=== PATIENT | female | born 1945 | race African-American/Black ===

== ENCOUNTER → 2018-04-12 | Outpatient (CLI) | payer MEDICARE, OTHER ==
[2015-06-20 16:59] VITALS: BP 157/87
[~2018-04-12] MED LIST: ASPI81TA50 PO; IRON18TA PO; MULT-246 PO; REGADENOSON 0.4 MG/5 ML DISP.SYRIN. IV ONE
--- NOTE | 2018-04-12 12:54 | RAD ---
MR#: [id number] Date of Study: 04/12/2018 Ordering Physician: URBAN RANDHAWA Referring Physician: JEB ROSENTHAL Tech: MANUELITO Evans APPROVED REPORT Test Type: Pharmacological Stress Nurse/Tech: Jennifer Gay R.N./Henrietta David RN Test Indications: SOA with exertion Cardiac History: High cholesterol, Diabetes Medications: See Electronic Medical Record Medical History: See Electronic Medical Record Resting ECG: SR Resting Heart Rate: 71 bpm Resting Blood Pressure: 132/83mmHg Pretest Chest Pain: No chest pain Nurse/Tech Notes S1S2, Lungs CTA Consent: The procedure was explained to the patient in lay terms. Informed consent was witnessed. Arnoldo eout was entered into organgir.am. History and Stress Test performed by Jennifer Gay R.N./Henrietta baldwin RN Pharm. Details Pharmacologic stress testing was performed using 0.4mg per 5ml of regadenoson given intravenously ove r 7-10 seconds. Stress Symptoms Dyspnea POST EXERCISE Reason for Termination: Infusion complete Max HR: 106 bpm Max Blood Pressure: 140/77mmHg Blood Pressure response to exercise: Normal blood pressure response during stress. Chest Pain: No. Arrhythmia: No. ST Change: No. INTERPRETATION Stress EKG Conclusion: Baseline EKG showed sinus rhythm. No ischemic changes at peak stress. No arr hythmias. Imaging Protocol IMAGE PROTOCOL: Rest Tc-99m/stress Tc-99m 1 day Rest: Stress: Viability: Radiopharm.Tc99m PgqfmppocSx46j Sestamibi Dose10.2mCi 32mCi Duration 15min. 13min. Img Date 04/12/2018 04/12/2018 Inj-Img Yohk44zmo. 60min. Rest Admin Site:IV - Right AntecubitalAdministrator:CAROLE Gunderson, ARRT (R)(N) Stress Admin Site: IV - Right AntecubitalAdministrator: CAROLE Gunderson, ARRT (R)(N) STRESS DATA End Diast. Vol.68.0mlLVEDV index BSA37.0ml End Syst. Vol.18.0mlLVESV index BSA10.0ml Myocardial Kvxr376.0gEject. Hfiustgj18.0% Stress Scores Regional WT2.00Summed WT9.00 Regional WM0.00Summed WM2.00 Study quality was good. Left Ventricular size was Normal at Rest and Stress. Lung uptake was . Left Ventricular ejection fraction is 74%. The rest and stress images show normal perfusion, normal contraction and thickening. LV Perf. Quant 17 Seg. SSS4.00 17 Seg. SRS8.00 17 Seg. SDS0.00 Stress Defect Extent (% LAD)0.00Rest Defect Extent (% LAD)6.90Rev. Defect Extent (% LAD)0.00 Stress Defect Extent (% LCX) 16.30Rest Defect Extent (% LCX)26.30Rev. Defect Extent (% LCX)0.00 Stress Defect Extent (% RCA)2.20Rest Defect Extent (% RCA)24.40Rev. Defect Extent (% RCA)0.00 Stress Defect Extent (% TAY)7.80Rest Defect Extent (% TAY)20.20Rev. Defect Extent (% TAY)0.00 Conclusion 1. Regadenoson cardioisotope stress test did not show any evidence of ischemia or infarct. 2. Normal left ventricular systolic function with ejection fraction calculated at 74%. 3. Low risk for cardiac events. Signed by : Urban Randhawa, Electronically Approved : 04/12/2018 12:53:03
== END | disposition home or self-care (01) ==
LOC: NM 09:33
PROVIDERS: ATTEND Internal Medicine Cardiovascular Disease
DX: R06.09 Other forms of dyspnea (principal); E78.00 Pure hypercholesterolemia, unspecified; E11.9 Type 2 diabetes mellitus without complications
CPT/HCPCS: 78452; 93017; 96374; A9500; J2785

== ENCOUNTER → 2018-04-26 | Outpatient (CLI) | payer MEDICARE, OTHER ==
[2015-06-20 16:59] VITALS: BP 157/87
[~2018-04-26] MED LIST changes: -REGADENOSON 0.4 MG/5 ML DISP.SYRIN. IV ONE
--- NOTE | 2018-04-26 18:16 | RAD ---
MR#: [id number] Date of Study: 04/26/2018 Ordering Physician: URBAN RANDHAWA, Referring Physician: URBAN RANDHAWA, Tech: Maximo Rosa MBA, RDMS, RVT, RDCS, RTR APPROVED REPORT Patient Location : OUT-PATIENT Indications Lower Extremity Edema : Bilateral Findings Grayscale images of the saphenofemoral junctions do not reveal any obvious evidence of thrombus. The right great saphenous vein measures 6.2 mm in the left great saphenous vein measures 6.3 mm. The bilateral greater saphenous veins do not show any evidence of reflux. The bilateral lesser saphenous veins do not show any evidence of reflux. Multiple superficial venous varicosities are noted along the mid and lateral aspect of the left thigh extending to the level of the popliteal fossa. Cannot rule out superficial vein thrombosis. Critical Notification Critical Value: No <Conclusion> 1. Negative for reflux in the bilateral greater and lesser saphenous veins. 2. Multiple superficial venous varicosities with likely chronic thrombus noted. Signed by : Sky Yanes, Electronically Approved : 04/26/2018 18:14:23
== END | disposition home or self-care (01) ==
LOC: US 13:26
PROVIDERS: ATTEND Internal Medicine Cardiovascular Disease
DX: I83.893 Varicose veins of bilateral lower extremities with other complications (principal)
CPT/HCPCS: 93970

== ENCOUNTER → 2018-05-11 | Outpatient (CLI) | payer MEDICARE, OTHER ==
[2015-06-20 16:59] VITALS: BP 157/87
--- NOTE | 2018-05-11 16:05 | CARD ---
MR#: [id number] Date of Study: 05/11/2018 Ordering Physician: URBAN GONZALEZ, Referring Physician: URBAN GONZALEZ Tech: Ayse Anne JENNIE APPROVED REPORT EXAM: Two-dimensional and M-mode echocardiogram with Doppler and color Doppler. Other Information Quality : GoodHR: 79bpm Rhythm : NSR INDICATION Dyspnea 2D DIMENSIONS RVDd3.0 (2.9-3.5cm)Left Atrium(2D)3.1 (1.6-4.0cm) IVSd1.3 (0.7-1.1cm)Aortic Root(2D)3.0 (2.0-3.7cm) LVDd3.5 (3.9-5.9cm)LVOT Diameter2.0 (1.8-2.4cm) PWd1.1 (0.7-1.1cm)LVDs2.5 (2.5-4.0cm) FS (%) 28.4 %SV28.8 ml LVEF(%)55.9 (>50%) Aortic Valve AoV Peak Maury.143.5cm/sAoV VTI28.0cm AO Peak GR.8.2mmHgLVOT Peak Maury.84.5cm/s AO Mean GR.4mmHgAVA (VMAX)1.82cm2 YING (VTI)1.80cm2 Mitral Valve MV E Lpdihjbi67.6cm/sMV DECEL CHOY634me MV A Hsfvxxnb62.7cm/sE/A Ratio0.9 MV A Ggnjhrnq83bc Pulmonary Valve PV Peak Srdtnctr767.6cm/s Tricuspid Valve TR P. Xllrryqh425ry/sRAP FUPMZKCR9flLv TR Peak Gr.19gtEgPYNF67rfRt Pulmonary Vein S1 Fngcztck40.1cm/sD2 Rkgwmugj98.4cm/s PVa udlrafsj90cmsx LEFT VENTRICLE The left ventricle is normal size. There is mild concentric left ventricular hypertrophy. The left ve ntricular systolic function is normal. The Ejection Fraction is 55-60%. There is normal LV segmental wall motion. Transmitral Doppler flow pattern is Grade I-abnormal relaxation pattern. RIGHT VENTRICLE The right ventricle is normal size. There is normal right ventricular wall thickness. The right ventr icular systolic function is normal. ATRIA The left atrium size is normal. The right atrium size is normal. The interatrial septum is intact wit h no evidence for an atrial septal defect or patent foramen ovale as noted on 2-D or Doppler imaging. AORTIC VALVE The aortic valve is normal in structure and function. The aortic valve is trileaflet. Doppler and Col or Flow revealed no significant aortic regurgitation. There is no significant aortic valvular stenosi s. MITRAL VALVE The mitral valve is normal in structure and function. There is no evidence of mitral valve prolapse. There is no mitral valve stenosis. Doppler and Color-flow revealed trace mitral regurgitation. TRICUSPID VALVE The tricuspid valve is normal in structure and function. Doppler and Color Flow revealed trace tricus pid regurgitation. The PA pressure was estimated at 26 mmHg. There is no tricuspid valve prolapse or vegetation. There is no tricuspid valve stenosis. PULMONIC VALVE The pulmonary valve is prominent measuring 3.1cm. Doppler and Color Flow revealed no pulmonic valvula r regurgitation. There is no pulmonic valvular stenosis. GREAT VESSELS The aortic root is normal in size. The ascending aorta is normal in size. The IVC is normal in size a nd collapses >50% with inspiration. PERICARDIAL EFFUSION There is no evidence of significant pericardial effusion. Critical Notification Critical Value: No <Conclusion> The left ventricular systolic function is normal. The Ejection Fraction is 55-60%. There is normal LV segmental wall motion. Transmitral Doppler flow pattern is Grade I-abnormal relaxation pattern. Trace mitral regurgitation. Trace tricuspid regurgitation. The PA pressure was estimated at 26 mmHg. There is no evidence of significant pericardial effusion. Signed by : Urban Gonzalez, Electronically Approved : 05/11/2018 16:04:43
== END | disposition home or self-care (01) ==
LOC: ECHO 12:34
PROVIDERS: ATTEND Internal Medicine Cardiovascular Disease
DX: I51.7 Cardiomegaly (principal); R00.8 Other abnormalities of heart beat
CPT/HCPCS: 93306

== ENCOUNTER → 2018-05-22 | Outpatient (CLI) | payer MEDICARE, OTHER ==
[2015-06-20 16:59] VITALS: BP 157/87
--- NOTE | 2018-05-26 16:06 | RAD ---
MR#: [id number] Date of Study: 05/22/2018 Ordering Physician: URBAN RANDHAWA, Referring Physician: URBAN RANDHAWA, Tech: Maximo Rosa MBA, RDMS, RVT, RDCS, RTR APPROVED REPORT Patient Location: OUT-PATIENT Indications Rest Pain:Bilaterally VELOCITY AND DOPPLER WAVEFORM ANALYSIS RIGHT cm/secWaveformSeverity LEFT cm/secWaveform Severity dCFA 128.0TriphasicdCFA 97.0Triphasic Prof Fem Art. 72.0TriphasicProf Fem Art. 55.0Biphasic Fem Art Prox. 124.0TriphasicFem Art Prox. 118.0Triphasic Fem Art Mid. 97.0TriphasicFem Art Mid. 96.0Triphasic Fem Art Dist. 103.0TriphasicFem Art Dist. 95.0Triphasic Pop Art(Fossa) 111.0TriphasicPop Art(AK) 100.0Triphasic DATA COMMUNICATIONS TECHNICIAN Prox. 100.0TriphasicPTA Prox. 96.0Triphasic DATA COMMUNICATIONS TECHNICIAN Dist. 98.0TriphasicPTA Dist. 60.0Triphasic Per Art Mid. 68.0TriphasicPer Art Mid. 106.0Biphasic SARI Prox. 78.0TriphasicATA Prox. 106.0Triphasic DPA 88TriphasicDPA 78Triphasic Findings Wood scale images of the bilateral lower extremity arterial vessels reveals mild intimal plaque. No s ignificant obstructive coronary disease is noted on wood scale images. Spectral waveforms and color Doppler of the bilateral lower summary arterial vessels reveals normal v elocities. Critical Notification Critical Value: No <Conclusion> No significant lower extremity arterial disease. Signed by : Sky Yanes, Electronically Approved : 05/26/2018 16:06:08
== END | disposition home or self-care (01) ==
LOC: US 13:47
PROVIDERS: ATTEND Internal Medicine Cardiovascular Disease
DX: I70.293 Other atherosclerosis of native arteries of extremities, bilateral legs (principal)
CPT/HCPCS: 93925

== ENCOUNTER 2019-04-20 06:47 | Emergency (ER) | payer MEDICARE, OTHER ==
[~2019-04-20] VITALS: Ht 154.9 cm; Wt 80.0 kg
--- NOTE | 2019-04-20 07:04 | EKG ---
[facility] [address] [place] [address] Test Date: 2019-04-20 Test Time: 06:59:40 Pat Name: SOCORRO CARR Department: Room: Gender: F Wheelchair Van Driver: : 1945 Requested By: LEYLA DE LA CRUZ Order Number: [id number] Reading MD: Measurements Intervals Polaris Rate: 65 P: 53 WA: 192 QRS: 0 QRSD: 80 T: 37 QT: 388 QTc: 408 Interpretive Statements SINUS RHYTHM LEFTWARD AXIS BORDERLINE ECG No previous ECG available for comparison
--- NOTE | 2019-04-20 07:09 | PHYS DOC ---
Past Medical History Past Medical History: Anemia, Arthritis, Bronchitis, Diabetes-Type II, High Cholesterol Additional Past Medical Histor: Scoliosis Past Surgical History: Hysterectomy Additional Past Surgical Histo: Rt knee, back surgery Alcohol Use: None Drug Use: None Adult General Chief Complaint Chief Complaint: NAUSEA/VOMITING/DIARRHA HPI HPI Patient is a 73 year old with history of dyslipidemia, diet-controlled diabetes mellitus, anemia, bronchitis, arthritis who presents via EMS with complaint of nausea and vomiting. Patient states she has had cough and nasal congestion with mild shortness of breath without fever and chills for 1 week. Patient states she has had 4 episodes of nonbloody vomiting since 4 AM and one episode of loose stool that was not a real diarrhea patient complaining of epigastric aching and sharp pain with radiation to her back and rated her pain 7 or 8/10. She denies fever and chills, urinary symptoms, sick contacts, history of the same problem. Review of Systems Review of Systems Constitutional: Denies fever or chills [] Eyes: Denies change in visual acuity, redness, or eye pain [] HENT: Reports nasal congestion Respiratory: Reports cough and shortness of breath Cardiovascular: No additional information not addressed in HPI [] GI: Reports abdominal pain, nausea, vomiting, denies bloody stools or diarrhea [] : Denies dysuria or hematuria [] Musculoskeletal: Denies back pain or joint pain [] Integument: Denies rash or skin lesions [] Neurologic: Denies headache, focal weakness or sensory changes [] Endocrine: Denies polyuria or polydipsia [] All other systems were reviewed and found to be within normal limits, except as documented in this note. Current Medications Current Medications Current Medications Medications (Trade) Dose Ordered Sig/Zeyad Start Time Stop Time Status Last Admin Dose Admin Famotidine (Pepcid Vial) 20 mg 1X ONCE 04/20/19 09:15 04/20/19 09:19 DC 04/20/19 09:28 20 MG Fentanyl Citrate (Fentanyl 2ml Vial) 50 mcg 1X ONCE 04/20/19 07:00 04/20/19 07:02 DC 04/20/19 07:28 50 MCG Ondansetron HCl (Zofran) 4 mg 1X ONCE 04/20/19 07:00 04/20/19 07:02 DC 04/20/19 07:28 4 MG Sodium Chloride 1,000 ml @ 1,000 mls/hr Q1H 04/20/19 06:55 04/20/19 07:54 DC 04/20/19 07:27 1,000 MLS/HR Allergies Allergies Allergies Coded Allergies Type Severity Reaction Last Updated Verified No Known Drug Allergies 05/14/13 No Physical Exam Physical Exam Constitutional: Well developed, well nourished, moderate distress, non-toxic appearance. [] HENT: Normocephalic, atraumatic, bilateral external ears normal, oropharynx moist, no oral exudates, nose normal. [] Eyes: PERRLA, EOMI, conjunctiva normal, no discharge. [] Neck: Normal range of motion, no tenderness, supple, no stridor. [] Cardiovascular:Heart rate regular rhythm, no murmur [] Lungs & Thorax: Bilateral breath sounds clear to auscultation [] Abdomen: Bowel sounds normal, soft, right upper quadrant guarding, no tenderness, no masses, no pulsatile masses. [] Skin: Warm, dry, no erythema, no rash. [] Back: No tenderness, no CVA tenderness. [] Extremities: No tenderness, no cyanosis, no clubbing, ROM intact, no edema. [] Neurologic: Alert and oriented X 3, normal motor function, normal sensory function, no focal deficits noted. [] Psychologic: Affect anxious, judgement normal, mood normal. [] Current Patient Data Vital Signs Vital Signs Date Time Temp Pulse Resp B/P (MAP) Pulse Ox O2 Delivery O2 Flow Rate FiO2 04/20/19 09:53 65 16 180/84 (116) 96 Room Air 04/20/19 08:23 2.0 04/20/19 06:47 97.6 97.6 Lab Values Laboratory Tests Test 04/20/19 07:10 04/20/19 09:37 White Blood Count 7.6 x10^3/uL (4.0-11.0) Red Blood Count 5.18 x10^6/uL (3.50-5.40) Hemoglobin 11.7 g/dL (12.0-15.5) L Hematocrit 37.2 % (36.0-47.0) Mean Corpuscular Volume 72 fL (79-100) L Mean Corpuscular Hemoglobin 23 pg (25-35) L Mean Corpuscular Hemoglobin Concent 31 g/dL (31-37) Red Cell Distribution Width 15.6 % (11.5-14.5) H Platelet Count 222 x10^3/uL (140-400) Neutrophils (%) (Auto) 79 % (31-73) H Lymphocytes (%) (Auto) 16 % (24-48) L Monocytes (%) (Auto) 5 % (0-9) Eosinophils (%) (Auto) 0 % (0-3) Basophils (%) (Auto) 1 % (0-3) Neutrophils # (Auto) 6.0 x10^3/uL (1.8-7.7) Lymphocytes # (Auto) 1.2 x10^3/uL (1.0-4.8) Monocytes # (Auto) 0.3 x10^3/uL (0.0-1.1) Eosinophils # (Auto) 0.0 x10^3/uL (0.0-0.7) Basophils # (Auto) 0.0 x10^3/uL (0.0-0.2) Segmented Neutrophils % 79 % (35-66) H Lymphocytes % 18 % (24-48) L Monocytes % 1 % (0-10) Eosinophils % 1 % (0-5) Myelocytes % 1 % (0-0) H Platelet Estimate Adequate (ADEQUATE) Hypochromasia Mod Anisocytosis Present Microcytosis Mod Prothrombin Time 12.6 SEC (11.7-14.0) Prothrombin Time INR 1.0 (0.8-1.1) Sodium Level 141 mmol/L (136-145) Potassium Level 3.8 mmol/L (3.5-5.1) Chloride Level 103 mmol/L (98-107) Carbon Dioxide Level 28 mmol/L (21-32) Anion Gap 10 (6-14) Blood Urea Nitrogen 21 mg/dL (7-20) H Creatinine 0.9 mg/dL (0.6-1.0) Estimated GFR (Cockcroft-Gault) 74.5 BUN/Creatinine Ratio 23 (6-20) H Glucose Level 186 mg/dL (70-99) H Calcium Level 8.9 mg/dL (8.5-10.1) Total Bilirubin 0.3 mg/dL (0.2-1.0) Aspartate Amino Transferase (AST) 19 U/L (15-37) Alanine Aminotransferase (ALT) 31 U/L (14-59) Alkaline Phosphatase 56 U/L (46-116) Creatine Kinase 249 U/L (26-192) H Troponin I Quantitative < 0.017 ng/mL (0.000-0.055) Total Protein 7.2 g/dL (6.4-8.2) Albumin 3.9 g/dL (3.4-5.0) Albumin/Globulin Ratio 1.2 (1.0-1.7) Lipase 114 U/L (73-393) Urine Collection Type Void Urine Color Yellow Urine Clarity Clear Urine pH 7.0 Urine Specific [place] 1.015 Urine Protein Negative mg/dL (NEG-TRACE) Urine Glucose (UA) Negative mg/dL (NEG) Urine Ketones (Stick) Negative mg/dL (NEG) Urine Blood Small (NEG) Urine Nitrite Negative (NEG) Urine Bilirubin Negative (NEG) Urine Urobilinogen Dipstick 0.2 mg/dL (0.2 mg/dL) Urine Leukocyte Esterase Negative (NEG) Urine RBC 20-40 /HPF (0-2) Urine WBC 0 /HPF (0-4) Urine Squamous Epithelial Cells Mod /LPF Urine Bacteria Few /HPF (0-FEW) Laboratory Tests 04/20/19 07:10 Laboratory Tests 04/20/19 07:10 EKG EKG KG interpreted by me. EKG at 0 659 showed normal sinus rhythm at rate of 65, left valdez axis, normal MN and QT intervals, no acute ST and T-wave elevation. Radiology/Procedures Radiology/Procedures [facility] [address] [place] [address] IMAGING REPORT Signed PATIENT: SOCORRO CARR AACCOUNT: [id number] : 1945 LOCATION: ER AGE: 73 SEX: F EXAM STATUS: REG ER ORD. PHYSICIAN: LEYLA DE LA CRUZ MD REASON: cough PROCEDURE: PORTABLE CHEST 1V PORTABLE CHEST 1V INDICATION: Cough. COMPARISON STUDY: 07/24/2012. FINDINGS: Lungs: Low lung volume. No pulmonary mass or consolidation. The tracheobronchial tree and hilar structures are normal. Pleura: No pleural effusion or pneumothorax. Heart and Mediastinum: Cardiomegaly. The great vessels of the thorax are normal. IMPRESSION: Low lung volume. No consolidation. Electronically signed by: Nyla Washington MD (04/20/2019 7:47 AM) [facility] DICTATED and SIGNED BY: NYLA WASHINGTON MD DATE: 04/20/19 0747 [facility] [address] [place] [address] IMAGING REPORT Signed PATIENT: SOCORRO CARR AACCOUNT: [id number] : 1945 LOCATION: ER AGE: 73 SEX: F EXAM STATUS: REG ER ORD. PHYSICIAN: LEYLA DE LA CRUZ MD REASON: nausea and vomiting and right upper quadrant pain PROCEDURE: ABDOMEN LTD ABDOMEN LTD INDICATION: Nausea vomiting, right upper quadrant pain COMPARISON: None. TECHNIQUE: Limited transverse and longitudinal grayscale images of the right upper quadrant with color and pulsed doppler utilized as appropriate. FINDINGS: The liver demonstrates increased echogenicity without focal lesions. The liver measures 19 cm. The portal vein is patent with normal antegrade flow. Gallbladder was not visualized. Negative sonographic Angel's sign. No intrahepatic or extrahepatic biliary dilatation. The common bile duct measures 0.3 cm. Pancreas was poorly visualized. The right kidney has normal echogenicity and measures 10.1 cm. No hydronephrosis, shadowing stones or suspicious masses seen. No ascites or fluid collections. The aorta and IVC are poorly visualized. Multiple fluid-filled but nondilated loops of small bowel. IMPRESSION: 1. Gallbladder was not visualized. Normal caliber common bile duct. 2. Multiple conspicuous fluid-filled but nondilated loops of small bowel are noted. Nonspecific, but consider enteritis. 3. Hepatomegaly and hepatic steatosis. Electronically signed by: Nyla Washington MD (04/20/2019 7:42 AM) [facility] DICTATED and SIGNED BY: NYLA WASHINGTON MD DATE: 04/20/19 0742 Course & Med Decision Making Course & Med Decision Making Pertinent Labs and Imaging studies reviewed. (See chart for details) Evaluation of patient in ER showed 73-year-old female patient brought in by EMS with complaining of nausea and vomiting since this morning. She had epigastric pain that improved with Pepcid. Labs was unremarkable except for mild elevation of urine. Patient has chronic anemia. EKG and cardiac enzyme unremarkable. Patient tolerated oral intake. Plan discharge patient home with diagnose of acute bronchitis and nausea and vomiting. I've spoken with the patient and/or caregivers. I've explained the patient's condition, diagnosis and treatment plan based on information available to me at this time. I've answered the patient's and/or caregivers questions and addressed any concerns. The patient and/or caregivers have a good understanding the patient's diagnosis, condition and treatment plan as can be expected at this point. Vital signs have been stabilized. The patient's condition is stable for discharge from the emergency department. The patient will pursue further outpatient evaluation with her primary care provider or other designated consulting physician as outlined in the discharge instructions. Patient and/or caregivers are agreeable to this plan of care and follow-up instructions have been explained in detail. The patient and/or caregivers have received these instructions in written format and expressed understanding of these discharge instructions. The patient and her caregivers are aware that if any significant change in condition or worsening of symptoms should prompt him to immediately return to this of the closest emergency department. If an emergent department is not readily available I would enco urage him to call 911. aRjesh Disclaimer Rajesh Disclaimer This electronic medical record was generated, in whole or in part, using a voice recognition dictation system. Departure Departure Impression: Primary Impression: Acute gastritis Additional Impressions: Upper respiratory infection Dehydration Disposition: 01 HOME, SELF-CARE Condition: IMPROVED Referrals: DAVON GARCIA MD (PCP) Patient Instructions: Gastritis, Adult, Upper Respiratory Infection, Adult Additional Instructions: Drink plenty of liquids Follow-up with your primary care physician in 3-5 days Return to ER if not getting better Do not eat solid food today Scripts Ondansetron Hcl (ZOFRAN) 4 Mg Tablet 1 TAB PO PRN Q6-8HRS for nausea, #12 TAB Prov: LEYLA DE LA CRUZ MD 04/20/19 Benzonatate (TESSALON PERLE) 100 Mg Capsule 1 CAP PO TID for cough, #21 CAP Prov: LEYLA DE LA CRUZ MD 04/20/19 Sulfamethoxazole/Trimethoprim (BACTRIM DS TABLET) 1 Each Tablet 1 TAB PO BID for infection, #14 TAB Prov: LEYLA DE LA CRUZ MD 04/20/19 Acetaminophen With Codeine (TYLENOL WITH CODEINE #3 TABLET) 1 Each Tablet 1 TAB PO PRN Q6HRS PRN for PAIN, #10 TAB Prov: LEYLA DE LA CURZ MD 04/20/19 Problem Qualifiers Primary Impression: Acute gastritis Gastritis type: other gastritis Gastritis bleeding: without bleeding Qualified Codes: K29.00 - Acute gastritis without bleeding Additional Impressions: Upper respiratory infection URI type: unspecified URI Qualified Codes: J06.9 - Acute upper respiratory infection, unspecified LEYLA DE LA CRUZ MD Apr 20, 2019 07:09
[2019-04-20] MEDS: IV NORMAL SALINE 1000ML BAG 1,000 ML IV SCH (07:27)
[2019-04-20 07:28] LABS: CALCIUM 8.9 mg/dL (8.5-10.1); CREATININE 0.9 mg/dL (0.6-1.0); GFR 74.5; POTASSIUM 3.8 mmol/L (3.5-5.1)
[2019-04-20] MEDS: fentaNYL PF VIAL 100 MCG/2 ML VIAL IV ONE (07:28)
[2019-04-20] MEDS: ONDANSETRON PF 4 MG/2 ML VIAL. IV ONE (07:28)
[2019-04-20 07:36] LABS: ALBUMIN 3.9 g/dL (3.4-5.0); ALBUMIN/GLOBULIN RATIO 1.2 (1.0-1.7); TOTAL BILIRUBIN 0.3 mg/dL (0.2-1.0); TOTAL PROTEIN 7.2 g/dL (6.4-8.2)
[2019-04-20 07:39] LABS: BASO % 1 % (0-3); EOS % 0 % (0-3); HEMATOCRIT 37.2 % (36.0-47.0); HEMOGLOBIN 11.7 g/dL (12.0-15.5); LYMPH # 1.2 x10^3/uL (1.0-4.8); LYMPH % 16 % (24-48); MEAN CORPUSCULAR HEMOGLOBIN 23 pg (25-35); MEAN CORPUSCULAR HGB CONC 31 g/dL (31-37); MEAN CORPUSCULAR VOLUME 72 fL (79-100); MONO # 0.3 x10^3/uL (0.0-1.1); MONO % 5 % (0-9); NEUT % 79 % (31-73); PLATELET COUNT 222 x10^3/uL (140-400); RED BLOOD COUNT 5.18 x10^6/uL (3.50-5.40); RED CELL DISTRIBUTION WIDTH 15.6 % (11.5-14.5); WHITE BLOOD COUNT 7.6 x10^3/uL (4.0-11.0)
--- NOTE | 2019-04-20 07:45 | RAD ---
ABDOMEN LTD INDICATION: Nausea vomiting, right upper quadrant pain COMPARISON: None. TECHNIQUE: Limited transverse and longitudinal grayscale images of the right upper quadrant with color and pulsed doppler utilized as appropriate. FINDINGS: The liver demonstrates increased echogenicity without focal lesions. The liver measures 19 cm. The portal vein is patent with normal antegrade flow. Gallbladder was not visualized. Negative sonographic Angel's sign. No intrahepatic or extrahepatic biliary dilatation. The common bile duct measures 0.3 cm. Pancreas was poorly visualized. The right kidney has normal echogenicity and measures 10.1 cm. No hydronephrosis, shadowing stones or suspicious masses seen. No ascites or fluid collections. The aorta and IVC are poorly visualized. Multiple fluid-filled but nondilated loops of small bowel. IMPRESSION: 1. Gallbladder was not visualized. Normal caliber common bile duct. 2. Multiple conspicuous fluid-filled but nondilated loops of small bowel are noted. Nonspecific, but consider enteritis. 3. Hepatomegaly and hepatic steatosis. Electronically signed by: Jayy Washington MD (04/20/2019 7:42 AM) [facility]
[2019-04-20 07:46] LABS: PROTHROMBIN TIME PATIENT 12.6 SEC (11.7-14.0)
--- NOTE | 2019-04-20 07:49 | RAD ---
PORTABLE CHEST 1V INDICATION: Cough. COMPARISON STUDY: 07/24/2012. FINDINGS: Lungs: Low lung volume. No pulmonary mass or consolidation. The tracheobronchial tree and hilar structures are normal. Pleura: No pleural effusion or pneumothorax. Heart and Mediastinum: Cardiomegaly. The great vessels of the thorax are normal. IMPRESSION: Low lung volume. No consolidation. Electronically signed by: Jayy Washington MD (04/20/2019 7:47 AM) [facility]
[2019-04-20 09:23] LABS: % EOS 1 % (0-5); % LYMPHS 18 % (24-48); % MONOS 1 % (0-10); % MYELOS 1 % (0-0); % SEGS 79 % (35-66)
[2019-04-20 09:24] LABS: ANISOCYTOSIS PRESENT; HYPOCHROMIA MOD; MICROCYTOSIS MOD; PLT ESTIMATE ADEQUATE (ADEQUATE)
[2019-04-20] MEDS: FAMOTIDINE 20 MG/2 ML VIAL IVP ONE (09:28)
[2019-04-20 09:53] VITALS: BP 180/84
[2019-04-20 10:01] LABS: BILIRUBIN,URINE NEGATIVE (NEG); CLARITY,URINE CLEAR; COLOR,URINE YELLOW; NITRITE,URINE NEGATIVE (NEG); PROTEIN,URINE NEGATIVE (NEG-TRACE); UROBILINOGEN,URINE 0.2 mg/dL (0.2 mg/dL)
[2019-04-20] MEDS ORDERED: ACET-704 PO (10:09)
[2019-04-20 10:20] LABS: BACTERIA,URINE FEW /HPF (0-FEW); RBC,URINE 20-40 /HPF (0-2); SQUAMOUS EPITHELIAL CELL,UR MOD /LPF; WBC,URINE 0 /HPF (0-4)
[2019-04-20] MEDS ORDERED: SULF1TAB24 PO (10:24)
[2019-04-20] MEDS ORDERED: BENZ100C PO (10:24)
[2019-04-20] MEDS ORDERED: ONDA4TAB7 PO (10:24)
== END 2019-04-20 10:27 | disposition home or self-care (01) ==
LOC: ER 06:47
DX: K29.00 Acute gastritis without bleeding (principal); J06.9 Acute upper respiratory infection, unspecified; E86.0 Dehydration; M19.90 Unspecified osteoarthritis, unspecified site; E11.9 Type 2 diabetes mellitus without complications; E78.00 Pure hypercholesterolemia, unspecified; M41.9 Scoliosis, unspecified; Z90.710 Acquired absence of both cervix and uterus; Z98.890 Other specified postprocedural states
CPT/HCPCS: 36415; 71045; 76705; 80053; 81001; 82550; 83690; 84484; 85007; 85025; 85610; 93005; 96361; 96374; 96375; 99285; J2405; J3010; J3490; J7030

== ENCOUNTER → 2020-06-05 | Outpatient (CLI) | payer MEDICARE, OTHER ==
[~2020-06-05] MED LIST changes: +ACET-704 PO; +BENZ100C PO; +ONDA4TAB7 PO; +SULF1TAB24 PO
--- NOTE | 2020-06-05 17:26 | CARD ---
MR#: [id number] Date of Study: 06/05/2020 Ordering Physician: URBAN RANDHAWA, Referring Physician: URBAN RANDHAWA Tech: Stephanie Raines [facility] APPROVED REPORT EXAM: Two-dimensional and M-mode echocardiogram with Doppler and color Doppler. Other Information Quality : AverageHR: 78bpm Rhythm : NSR INDICATION Hypertension/HCVD 2D DIMENSIONS RVDd3.0 (2.9-3.5cm)Left Atrium(2D)3.3 (1.6-4.0cm) IVSd1.1 (0.7-1.1cm)Aortic Root(2D)2.9 (2.0-3.7cm) LVDd3.3 (3.9-5.9cm)LVOT Diameter2.2 (1.8-2.4cm) PWd1.3 (0.7-1.1cm)LVDs2.2 (2.5-4.0cm) FS (%) 35.2 %SV29.7 ml LVEF(%)65.8 (>50%) Aortic Valve AoV Peak Maury.149.4cm/sAoV VTI30.4cm AO Peak GR.8.9mmHgLVOT Peak Maury.82.9cm/s AO Mean GR.4mmHgAVA (VMAX)2.10cm2 Mitral Valve MV E Lhoqmxdh84.0cm/sMV DECEL [id number] MV A Jpznnhqr75.0cm/sE/A Ratio0.9 Pulmonary Valve PV Peak Vlvknufw31.1cm/s Tricuspid Valve TR P. Cdlqsumz640sk/sTR Peak Gr.28mmHg Pulmonary Vein S1 Hzrvmbvy53.4cm/sD2 Haljszwv21.9cm/s PVa [id number] LEFT VENTRICLE The left ventricle is normal size. There is mild concentric left ventricular hypertrophy. The left ve ntricular systolic function is normal and the ejection fraction is within normal range. Estimated ej ection fraction 60-65% There is normal LV segmental wall motion. Transmitral Doppler flow pattern is Grade I-abnormal relaxation pattern. RIGHT VENTRICLE The right ventricle is normal size. There is normal right ventricular wall thickness. The right ventr icular systolic function is normal. ATRIA The left atrium size is normal. The right atrium size is normal. The interatrial septum is intact wit h no evidence for an atrial septal defect or patent foramen ovale as noted on 2-D or Doppler imaging. AORTIC VALVE The aortic valve is normal in structure and function. Doppler and Color Flow revealed no significant aortic regurgitation. There is no significant aortic valvular stenosis. MITRAL VALVE The mitral valve is normal in structure and function. There is no evidence of mitral valve prolapse. There is no mitral valve stenosis. Doppler and Color-flow revealed trace mitral regurgitation. TRICUSPID VALVE The tricuspid valve is normal in structure and function. Doppler and Color Flow revealed trace to mil d tricuspid regurgitation. Estimated PAP 33 mmHg. There is no tricuspid valve stenosis. PULMONIC VALVE The pulmonary valve is normal in structure and function. Doppler and Color Flow revealed no pulmonic valvular regurgitation. GREAT VESSELS The aortic root is normal in size. The ascending aorta is normal in size. The IVC is normal in size a nd collapses >50% with inspiration. PERICARDIAL EFFUSION There is no evidence of significant pericardial effusion. Critical Notification Critical Value: No <Conclusion> The left ventricle is normal size. The left ventricular systolic function is normal and the ejection fraction is within normal range. Estimated ejection fraction 60-65% There is mild concentric left ventricular hypertrophy. Doppler and Color Flow revealed no significant aortic regurgitation. There is no significant aortic valvular stenosis. Doppler and Color-flow revealed trace mitral regurgitation. Doppler and Color Flow revealed trace to mild tricuspid regurgitation. Estimated PAP 33 mmHg. Signed by : Maxwell Marquis MD Electronically Approved : 06/05/2020 17:26:21
== END ==
LOC: ECHO 10:01
PROVIDERS: ATTEND Internal Medicine Cardiovascular Disease
DX: I07.1 Rheumatic tricuspid insufficiency (principal)
CPT/HCPCS: 93306

== ENCOUNTER → 2021-07-01 | Outpatient (CLI) | payer MEDICARE, OTHER ==
--- NOTE | 2021-07-03 17:47 | CARD ---
MR#: [id number] Date of Study: 07/01/2021 Ordering Physician: URBAN RANDHAWA, Referring Physician: URBAN RANDHAWA Tech: Stephanie Raines [facility] APPROVED REPORT EXAM: Two-dimensional and M-mode echocardiogram with Doppler and color Doppler. Other Information Quality : GoodHR: 78bpm Rhythm : NSR INDICATION Dyspnea RISK FACTORS Hypertension Obesity Diabetes 2D DIMENSIONS RVDd2.7 (2.9-3.5cm)Left Atrium(2D)3.7 (1.6-4.0cm) IVSd1.1 (0.7-1.1cm)Aortic Root(2D)3.2 (2.0-3.7cm) LVDd3.4 (3.9-5.9cm)LVOT Diameter1.9 (1.8-2.4cm) PWd1.1 (0.7-1.1cm)LVDs2.4 (2.5-4.0cm) FS (%) 28.7 %SV26.6 ml LVEF(%)56.4 (>50%) Aortic Valve AoV Peak Maury.131.2cm/sAoV VTI28.6cm AO Peak GR.6.9mmHgLVOT Peak Maury.109.4cm/s AO Mean GR.3mmHgAVA (VMAX)2.41cm2 Mitral Valve MV E Qepyyozm07.5cm/sMV DECEL [id number] MV A Fvczfaim95.5cm/sE/A Ratio0.8 Pulmonary Valve PV Peak Bsiovful51.0cm/s Tricuspid Valve TR P. Muzxnhfj660eg/sTR Peak Gr.27mmHg LEFT VENTRICLE The left ventricle is normal size. There is mild concentric left ventricular hypertrophy. The left ve ntricular systolic function is normal. Estimated ejection fraction 60-65%. There is normal LV segmen travis wall motion. Transmitral Doppler flow pattern is Grade I-abnormal relaxation pattern. RIGHT VENTRICLE The right ventricle is normal size. There is normal right ventricular wall thickness. The right ventr icular systolic function is normal. ATRIA The left atrium size is normal. The right atrium size is normal. The interatrial septum is intact wit h no evidence for an atrial septal defect or patent foramen ovale as noted on 2-D or Doppler imaging. AORTIC VALVE The aortic valve is normal in structure and function. Doppler and Color Flow revealed no significant aortic regurgitation. There is no significant aortic valvular stenosis. MITRAL VALVE The mitral valve is normal in structure and function. There is no evidence of mitral valve prolapse. There is no mitral valve stenosis. Doppler and Color-flow revealed trace mitral regurgitation. TRICUSPID VALVE The tricuspid valve is normal in structure and function. Doppler and Color Flow revealed trace tricus pid regurgitation. Estimated PAP 30 mmHg. There is no tricuspid valve stenosis. PULMONIC VALVE The pulmonary valve is normal in structure and function. Doppler and Color Flow revealed no pulmonic valvular regurgitation. GREAT VESSELS The aortic root is normal in size. The ascending aorta is normal in size. The IVC is normal in size a nd collapses >50% with inspiration. PERICARDIAL EFFUSION There is no evidence of significant pericardial effusion. Critical Notification Critical Value: No <Conclusion> The left ventricular systolic function is normal. Estimated ejection fraction 60-65%. There is normal LV segmental wall motion. Transmitral Doppler flow pattern is Grade I-abnormal relaxation pattern. Trace mitral regurgitation. Trace tricuspid regurgitation. Estimated PAP 30 mmHg. There is no evidence of significant pericardial effusion. Signed by : Urban Randhawa, Electronically Approved : 07/03/2021 17:46:45
== END ==
LOC: ECHO 10:47
PROVIDERS: ATTEND Internal Medicine Cardiovascular Disease
DX: I51.7 Cardiomegaly (principal)
CPT/HCPCS: 93306; C8929